=== PATIENT | male | born 1960 | race Asian ===

== ENCOUNTER 2017-02-02 05:33 | Day surgery (SDC) | payer MEDICAID ==
--- NOTE | 2017-02-01 14:10 | GHP ---
[f rep st] PREOP HISTORY AND PHYSICAL DATE OF ADMISSION: 02/02/2017 HISTORY OF PRESENT ILLNESS: The patient is a 56-year-old male with stage 4 chronic kidney disease, l ikely secondary to diabetic nephropathy and hypertension, who is nearing need for hemodialysis. Per reports from Nephrology, he has been hesitant to accept this. He was referred to us for AV fistula c reation; however, this was delayed due to a hospitalization in early January for hypertensive urgenc y. He continues to be followed closely by Nephrology and is now here for arteriovenous fistula surge ry. There is some concern he may not be able to wait for maturation and may end up needing a tempora ry or tunneled neck catheter. The patient is right-handed. Ultrasound shows adequate veins for fist clemencia creation. PAST MEDICAL HISTORY: Includes end-stage renal disease with microalbuminuria, type 2 diabetes since 1989 with reported poor control, hypertension, acanthus nigrans, hypertensive retinopathy, hyperlipid emia, gastroesophageal reflux disease, gout, obstructive sleep apnea with no use of CPAP due to intol erance, history of hyponatremia. PAST SURGICAL HISTORY: Includes eye surgery. FAMILY HISTORY: Negative for kidney disease, but positive for hypertension, hyperlipidemia. SOCIAL HISTORY: Patient is a nonsmoker. He is . 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 ALLERGIES: No known drug allergies. MEDICATIONS: Include Novolin insulin, omega-3 fatty acids, aspirin, allopurinol, atorvastatin, metop rolol, amlodipine. REVIEW OF SYSTEMS: The patient's only positive on a 10-point review of systems is history of diabete s he reports. PHYSICAL EXAMINATION: GENERAL: Reveals a 56-year-old male, alert and oriented x3, and in no acute d istress. HEENT: Normocephalic, atraumatic. Pupils equal and round. CHEST: Clear to auscultation bilaterally. CARDIAC: Regular rate and rhythm. ABDOMEN: Soft, nontender. EXTREMITIES: Warm, dry with palpable radial pulses. IMPRESSION: This is a 56-year-old male with multiple comorbidities and end-stage renal disease, near ing need for hemodialysis. PLAN: Plan is to proceed with a left upper extremity AV fistula. Risks and options have been discus sed including, but not limited to, bleeding, infection, injury to nerve, clotting, failure to mature, need for revision, need for alternate access, steal syndrome, and other problems, and he requests to proceed. /[id number]/MODL
[2017-02-02] MEDS ORDERED: ceFAZolin 2 GM/SWFI 2 GM/20 ML SYR IVP ONE (05:57)
[2017-02-02] MEDS ORDERED: LIDOCAINE 1% 2 ML INJ ID PRN (05:59)
[2017-02-02] MEDS ORDERED: LR 1,000 ML IV ONE (05:59)
[2017-02-02] MEDS ORDERED: NS 1,000 ML IV ONE (06:45)
--- NOTE | 2017-02-02 07:00 | PDANEPAE ---
ANE History of Present Illness 60 year old for AV fistula. ANE Past Medical History - Cardiovascular History Hx Hypertension: Yes Hx Arrhythmias: No Hx Chest Pain: No Hx Coronary Artery / Peripheral Vascular Disease: No Hx CHF / Valvular Disease: No Hx Palpitations: No - Pulmonary History Hx COPD: No Hx Asthma/Reactive Airway Disease: No Hx Recent Upper Respiratory Infection: No Hx Oxygen in Use at Home: No Hx Sleep Apnea: Yes Sleep Apnea Screening Result - Last Documented: Positive Pulmonary History Comment: DEBBIE USES C-PAP INSTRUCTED TO BRING DOS - Neurologic History Hx Cerebrovascular Accident: No Hx Seizures: No Hx Dementia: No - Endocrine History Hx Diabetes: Yes Hypothyroid: No Hyperthyroid: No Obesity: yes, moderate Endocrine History Comment: IDDM SINCE EARLY - Renal History Hx Renal Disorders: Yes Renal History Comment: STAGE 4 CKD MAY NEED DIALYSIS IN THE NEAR FUTURE - Liver History Hx Hepatic Disorders: No - Neurological & Psychiatric Hx Hx Neurological and Psychiatric Disorders: No - Cancer History Hx Cancer: No - Congenital Disorder History Hx Congenital Disorders: No - GI History Hx Gastrointestinal Disorders: Yes Gastrointestinal History Comment: CONSTIPATION - Chronic Pain History Chronic Pain: No - Surgical History Prior Surgeries: DG RETINAL 2015 ANE Review of Systems Review of Systems: - Exercise capacity Exercise capacity: >=4 METS METS (RN): 4 METS ANE Patient History - Allergies Allergies/Adverse Reactions: No Known Allergies Allergy (Unverified 01/27/17 11:12) - Home Medications Home medications: home medication list seen and reviewed Home Medications: Allopurinol HS 01/27/17 [Last Taken 02/01/17 18:00] Amlodipine Besylate DAILY06 01/27/17 [Last Taken 02/02/17 06:00] Aspirin DAILY06 01/27/17 [Last Taken 01/19/17] Atorvastatin Calcium HS 01/27/17 [Last Taken 02/01/17 18:00] Herbal Drugs DAILY 01/27/17 [Last Taken 01/26/17] Labetalol HCl BID 01/27/17 [Last Taken 02/02/17 05:00 200mg] Novolin 70/30 (*) 25 DAILY AT 6PM 01/27/17 [Last Taken 02/01/17 18:00] Novolin 70/30 (*) 30 DAILY06 01/27/17 [Last Taken 02/02/17 05:00 15 units] - NPO status NPO Status: no food or drink >8 hours NPO Since - Liquids (Date): 02/01/17 NPO Since - Liquids (Time): 23:00 NPO Since - Solids (Date): 02/01/17 NPO Since - Solids (Time): 19:30 - Anes Hx Anes Hx: no prior problems - Smoking Hx Smoking Status: Never smoked Marijuana use: Yes - Alcohol Use Alcohol Use: None - Family Anes Hx Family Anes Hx: neg - N/A ANE Labs/Vital Signs - Vital Signs Vital Signs: reviewed preoperatively; see RN documention for details Blood Pressure: 135/68 Heart Rate: 57 Respiratory Rate: 20 O2 Sat (%): 92 Height: 177.8 cm Weight: 107.955 kg ANE Physical Exam - Airway Neck exam: short neck Mallampati Score: Class 4 Mouth exam: normal dental/mouth exam - Pulmonary Pulmonary: no respiratory distress - Cardiovascular Cardiovascular: regular rate and rhythym - ASA Status ASA Status: III ANE Anesthesia Plan Anesthesia Plan: general endotracheal anesthesia Total IV Anesthesia: No
[2017-02-02] MEDS ORDERED: PROTAMINE SULFATE 50 MG/5 ML VIAL IVP ONE ×2 (07:04→07:06)
[2017-02-02] MEDS ORDERED: BUPIVACAINE 0.5% 30 ML SDV ONE (07:04)
[2017-02-02] MEDS ORDERED: PAPAVERINE HCL 60 MG/2 ML SDV ONE (07:04)
[2017-02-02] MEDS ORDERED: THROMBIN (BOVINE) 5,000 UNIT VIAL TP ONE (07:04)
[2017-02-02] MEDS ORDERED: THROMBIN (BOVINE) 20,000 UNIT SPRAY TP ONE (07:04)
[2017-02-02] MEDS ORDERED: fentaNYL 100 MCG/2 ML INJ ONE (07:15)
[2017-02-02] MEDS ORDERED: PROPOFOL 200 MG/20 ML VIAL ONE (07:15)
[2017-02-02] MEDS ORDERED: ONDANSETRON 4 MG/2 ML VIAL ONE (07:30)
[2017-02-02] MEDS ORDERED: DEXAMETHASONE 4 MG/ML VIAL ONE (07:30)
[2017-02-02] MEDS ORDERED: fentaNYL 100 MCG/2 ML INJ IVP PRN (08:06)
[2017-02-02] MEDS ORDERED: NALOXONE HCL 0.4 MG/ML INJ IVP PRN (08:06)
[2017-02-02] MEDS ORDERED: ONDANSETRON 4 MG/2 ML VIAL IVP PRN (08:06)
[2017-02-02] MEDS ORDERED: LR 500 ML IV PRN (08:06)
[2017-02-02] MEDS ORDERED: GLYCOPYRROLATE 0.2 MG/1 ML VIAL ONE (08:41)
[2017-02-02] MEDS ORDERED: SUGAMMADEX SODIUM 200 MG/2 ML VIAL IVP ONE (08:59)
--- NOTE | 2017-02-02 09:17 | POSTOPPROG ---
Post Op Note Date of Operation: 02/02/17 Surgeon: Jovani Zapata Tone Artist Apprentice: Suzy Duffy Anesthesiologist: Anupam Napier Anesthesia: GET(General Endotracheal) Pre-op Diagnosis: CRF Post-op Diagnosis: same Procedure: L radiocephalic AVF Findings: good thrill Inf/Abcess present in the surg proc area at time of surgery?: No EBL: Minimal Complications: none
[2017-02-02 10:03] VITALS: O2SAT 91
[2017-02-02 10:36] VITALS: BP 118/52; RESP 18
[2017-02-02 10:40] VITALS: PULSE 60; TEMP 97.7
--- NOTE | 2017-02-02 19:55 | POSTANESTH ---
Post Anesthetic Evaluation Cardiovascular Status: Normal, Stable, Similar to Pre-Op Cond Respiratory Status: Normal, Stable, Similar to Pre-op Cond. Level of Consciousness/Mental Status: Can Participate in Eval, Alert and Oriented Pain Control: Adequate, Prn Tx Ordered Nausea/Vomiting Control: Adequate, Prn Tx Ordered Complications Possibly Related to Anesthesia: None Noted
--- NOTE | 2017-02-06 14:01 | GOP ---
[f rep st] OPERATIVE REPORT DATE OF OPERATION: 02/02/2017 SURGEON: Jovani Zapata MD SPIKE MACHINE HEATER: HARISH Richardson ANESTHESIOLOGIST: Qamar Freeman MD. PREOPERATIVE DIAGNOSIS: Chronic renal failure. POSTOPERATIVE DIAGNOSIS: Chronic renal failure. PROCEDURE PERFORMED: 1. Left arm ultrasound vein mapping. 2. Radiocephalic arteriovenous fistula. FINDINGS: good flow ESTIMATED BLOOD LOSS: Less than 10 cc. DESCRIPTION OF PROCEDURE: Patient taken to the operating room where he received satisfactory general endotracheal anesthesia by Dr. Freeman, placed in supine position, prepped and draped in usual sterile fashion. Ultrasound was used to map the veins in the left arm. Cephalic vein was quite good both above and below the antecubital space as well as the basilic vein. It was elected to try a radiocephalic AV fistula as the artery looked reasonably good on ultrasound. Incision was made over the radial artery at the wrist. Dissection was carried down. The artery was dissected free and controlled with vessel loops. It was quite soft for a diabetic artery. The cephalic vein was then mobilized underneath the radial flap. It was dissected distally and then ligated and the vein was rotated over to the radial artery where an end-to-side anastomosis was made using a running 6-0 Prolene suture, creating a 7 mm anastomosis. Flow was first established through the AV fistula and then back down the hand, maintaining good capillary filling in the hand and a good thrill in the AV fistula. The suture line appeared to be hemostatic. Heparin was reversed with protamine, as he had been systemically heparinized. The wound was infiltrated with 0.5% Marcaine. Some topical thrombin was placed in the cavity. The wound was closed with interrupted 3-0 Vicryl for the subcutaneous tissue and a 4-0 Monocryl subcuticular stitch for the skin. He tolerated the procedure well, taken to recovery room in good condition. COMPLICATIONS: None. /[id number]/MODL MTDD
== END 2017-02-02 10:40 | disposition home or self-care (01) ==
LOC: FSGY 05:33
PROVIDERS: ATTEND Surgery
PROC: B54NZZA Ultrasonography of Left Upper Extremity Veins, Guidance (ICD-10-PCS; principal; 2017-02-02 07:15)
PROC: 03180ZD Bypass Left Brachial Artery to Upper Arm Vein, Open Approach (ICD-10-PCS; principal; 2017-02-02 07:15)
DX: N18.4 Chronic kidney disease, stage 4 (severe) (principal); E11.22 Type 2 diabetes mellitus with diabetic chronic kidney disease; I12.9 Hypertensive chronic kidney disease with stage 1 through stage 4 chronic kidney disease, or unspecified chronic kidney disease; E11.21 Type 2 diabetes mellitus with diabetic nephropathy; E78.5 Hyperlipidemia, unspecified; K21.9 Gastro-esophageal reflux disease without esophagitis; G47.33 Obstructive sleep apnea (adult) (pediatric)
CPT/HCPCS: J1100; J1644; J2405; J2440; J2704; J2720; J3010

== ENCOUNTER 2017-04-19 06:35 | Day surgery (SDC) | payer MEDICAID ==
[2017-04-19] MEDS ORDERED: ceFAZolin 2 GM/SWFI 2 GM/20 ML SYR IVP ONE (06:57)
[2017-04-19] MEDS ORDERED: LIDOCAINE 1% 2 ML INJ ID PRN (06:58)
[2017-04-19] MEDS ORDERED: LR 1,000 ML IV ONE (06:58)
[2017-04-19] MEDS ORDERED: NS 500 ML IV SCH (07:15)
[2017-04-19 07:36] LABS: PLATELET COUNT 174 10^3/uL (150-400)
[2017-04-19] MEDS ORDERED: BUPIVACAINE 0.5% 30 ML SDV ONE (07:44)
[2017-04-19] MEDS ORDERED: POVIDONE-IODINE 30 GM OINTTUBE TP ONE (07:44)
[2017-04-19 07:48] VITALS: PULSE 63
--- NOTE | 2017-04-19 07:48 | PDHPUP ---
History & Physical Update H&P update statement: This history and physical update is based on an assessment of the patient which was completed after admission or registration (within 24 hours), but prior to the surgery/procedure. H&P update: H&P reviewed & patient examined, no change in patient's condition since H&P completed
[2017-04-19] MEDS ORDERED: fentaNYL 100 MCG/2 ML INJ ONE (07:56)
[2017-04-19] MEDS ORDERED: PROPOFOL 200 MG/20 ML VIAL ONE (07:56)
[2017-04-19] MEDS ORDERED: ROCURONIUM 100 MG/10 ML VIAL ONE (07:58)
--- NOTE | 2017-04-19 08:00 | PDANEPAE ---
ANE History of Present Illness Patient presents for peritoneal dialysis catheter placement ANE Past Medical History - Cardiovascular History Hx Hypertension: Yes Hx Arrhythmias: No Hx Chest Pain: No Hx Coronary Artery / Peripheral Vascular Disease: No Hx CHF / Valvular Disease: No Hx Palpitations: No - Pulmonary History Hx COPD: No Hx Asthma/Reactive Airway Disease: No Hx Recent Upper Respiratory Infection: No Hx Oxygen in Use at Home: No Hx Sleep Apnea: Yes Sleep Apnea Screening Result - Last Documented: Positive Pulmonary History Comment: DEBBIE USES C-PAP INSTRUCTED TO BRING DOS - Neurologic History Hx Cerebrovascular Accident: No Hx Seizures: No Hx Dementia: No - Endocrine History Hx Diabetes: Yes Endocrine History Comment: IDDM SINCE EARLY - Renal History Hx Renal Disorders: Yes Renal History Comment: STAGE 4 CKD. dialysis 3 days a week - Liver History Hx Hepatic Disorders: No - Neurological & Psychiatric Hx Hx Neurological and Psychiatric Disorders: No - Cancer History Hx Cancer: No - Congenital Disorder History Hx Congenital Disorders: No - GI History Hx Gastrointestinal Disorders: No Gastrointestinal History Comment: CONSTIPATION - Other Health History Other Health History: blind in R eye - Chronic Pain History Chronic Pain: No - Surgical History Prior Surgeries: DG detached retinas, blind R eye. eye surgery 04/14 ANE Review of Systems Review of Systems: - Exercise capacity METS (RN): 4 METS ANE Patient History - Allergies Allergies/Adverse Reactions: No Known Allergies Allergy (Unverified 01/27/17 11:12) - Home Medications Home medications: home medication list seen and reviewed Home Medications: Allopurinol HS 01/27/17 [Last Taken 1 Day Ago ~04/18/17] Amlodipine Besylate DAILY06 01/27/17 [Last Taken 1 Day Ago ~04/18/17] Aspirin DAILY06 01/27/17 [Last Taken 2 Weeks Ago ~04/05/17] Atorvastatin Calcium HS 01/27/17 [Last Taken 1 Day Ago ~04/18/17] Herbal Drugs DAILY 01/27/17 [Last Taken 04/19/17] Labetalol HCl BID 01/27/17 [Last Taken 04/19/17] Novolin 70/30 (*) 25 DAILY AT 6PM 01/27/17 [Last Taken 04/19/17] Novolin 70/30 (*) 30 DAILY06 01/27/17 [Last Taken 02/02/17 05:00 15 units] - NPO status NPO Status: no food or drink >8 hours NPO Since - Liquids (Date): 04/18/17 NPO Since - Liquids (Time): 23:00 NPO Since - Solids (Date): 04/18/17 NPO Since - Solids (Time): 20:00 - Anes Hx Anes Hx: no prior problems - Smoking Hx Smoking Status: Never smoked - Family Anes Hx Family Hx Anesthesia Complications: none ANE Labs/Vital Signs - Labs Result Diagrams: 04/19/17 07:25 04/19/17 07:25 - Vital Signs Blood Pressure: 146/71 Heart Rate: 63 Respiratory Rate: 18 O2 Sat (%): 93 Height: 177.8 cm Weight: 99.79 kg ANE Physical Exam - Airway Neck exam: FROM Mallampati Score: Class 3 Mouth exam: poor dentition - Pulmonary Pulmonary: no respiratory distress - Cardiovascular Cardiovascular: regular rate and rhythym - ASA Status ASA Status: III ANE Anesthesia Plan Anesthesia Plan: general endotracheal anesthesia (rba discussed)
[2017-04-19] MEDS ORDERED: SUCCINYLCHOLINE CHLORIDE 200 MG/10 ML SYR IVP ONE (08:14)
[2017-04-19] MEDS ORDERED: CISATRACURIUM BESYLATE 20 MG/10 ML VIAL IV ONE (08:23)
[2017-04-19] MEDS ORDERED: PHENYLEPHRINE HCL 100 MCG/ML SYR ONE (08:47)
[2017-04-19] MEDS ORDERED: ONDANSETRON 4 MG/2 ML VIAL ONE (08:51)
[2017-04-19] MEDS ORDERED: METOCLOPRAMIDE 10 MG/2 ML VIAL ONE (08:51)
[2017-04-19] MEDS ORDERED: SUGAMMADEX SODIUM 200 MG/2 ML VIAL IVP ONE ×2 (08:52→09:00)
[2017-04-19] MEDS ORDERED: GLYCOPYRROLATE 0.2 MG/1 ML VIAL ONE ×3 (09:04)
[2017-04-19] MEDS ORDERED: NEOSTIGMINE METHYLSULFATE 3 MG/3 ML SYR ONE ×2 (09:06)
[2017-04-19] MEDS ORDERED: LABETALOL HCL 5 MG/ML 20 ML MDV ONE (09:26)
--- NOTE | 2017-04-19 09:40 | POSTOPPROG ---
Post Op Note Date of Operation: 04/19/17 Surgeon: Jovani Zapata Pipe Coverer Helper: Suzy Duffy Anesthesiologist: Tejas Gomes Anesthesia: GET(General Endotracheal) Pre-op Diagnosis: CRF, need for PD access Post-op Diagnosis: same Procedure: laparoscopic guided peritoneal dialysis catheter placement Findings: good placement in pelvis, good in and outflow, some adhesions Inf/Abcess present in the surg proc area at time of surgery?: No EBL: Minimal Complications: none
[2017-04-19] MEDS ORDERED: OXYCODONE/APAP 5/325 TAB PO PRN (09:48)
[2017-04-19] MEDS ORDERED: NALOXONE HCL 0.4 MG/ML INJ IVP PRN (09:48)
[2017-04-19] MEDS ORDERED: HYDROCODONE/APAP 5/325 TAB PO PRN (09:48)
[2017-04-19] MEDS ORDERED: LABETALOL HCL 5 MG/ML 20 ML MDV IVP PRN (09:48)
[2017-04-19] MEDS ORDERED: NS 500 ML IV PRN (09:48)
[2017-04-19] MEDS ORDERED: fentaNYL 100 MCG/2 ML INJ IVP PRN (09:48)
[2017-04-19] MEDS ORDERED: ONDANSETRON 4 MG/2 ML VIAL IVP PRN (09:48)
--- NOTE | 2017-04-19 09:49 | POSTANESTH ---
Post Anesthetic Evaluation Cardiovascular Status: Similar to Pre-Op Cond Respiratory Status: Similar to Pre-op Cond. Level of Consciousness/Mental Status: Alert and Oriented Pain Control: Adequate, Prn Tx Ordered Nausea/Vomiting Control: Adequate, Prn Tx Ordered Complications Possibly Related to Anesthesia: None Noted
[2017-04-19 10:25] VITALS: TEMP 97.5
[2017-04-19] MEDS ORDERED: ACETAMINOPHEN 500 MG TAB PO ONE (11:10)
[2017-04-19 11:34] VITALS: BP 150/72
[2017-04-19 11:53] VITALS: O2SAT 95
[2017-04-19 11:55] VITALS: RESP 14
--- NOTE | 2017-04-19 12:17 | GOP ---
[f rep st] OPERATIVE REPORT DATE OF OPERATION: 04/19/2017 SURGEON: Jovani Zapata MD PREOPERATIVE DIAGNOSIS: Chronic renal failure. POSTOPERATIVE DIAGNOSIS: Chronic renal failure. PROCEDURE PERFORMED: Laparoscopic peritoneal dialysis catheter placement. FINDINGS: Patient was found to have excellent flow from his PD catheter. DESCRIPTION OF PROCEDURE: The patient was brought to the operating room where he received satisfacto ry general endotracheal anesthesia by . He was placed in supine position, prepped and draped in usual sterile fashion. A periumbilical incision was made and dissection was carried down to the rectus sheath. A Veress nee dle was inserted. Pneumoperitoneum was established. A 10 mm trocar was introduced. Laparoscope int roduced. Good visualization was obtained. A second trocar was placed in the left lower quadrant. T he swan neck catheter was then introduced via the introducer sheath and then positioned into the deep pelvis. A 10 mm trocar was introduced in the catheter was secured in position by closing the fascia over the Dacron cuff with interrupted 0-Vicryl sutures. Wound was infiltrated with 0.5% Marcaine. The catheter and other Dacron pledget was pulled inferiorly and then exited out through the trocar si te. The pelvis was instilled with 500 cc of saline, and then, a reverse flow removed at least 400 cc of that saline back out before stopping the procedure. The catheter was dressed at the exit site wi th Betadine ointment. It was attached to its permanent fixtures. He tolerated the procedure well. There were no complications. Blood loss was negligible, taken recovery room in good condition ____. /[id number]/MODL
== END 2017-04-19 12:07 | disposition home or self-care (01) ==
LOC: FSGY 06:35
PROVIDERS: ATTEND Surgery
PROC: 0WHG33Z Insertion of Infusion Device into Peritoneal Cavity, Percutaneous Approach (ICD-10-PCS; principal; 2017-04-19 08:00)
PROC: 0JH83XZ Insertion of Tunneled Vascular Access Device into Abdomen Subcutaneous Tissue and Fascia, Percutaneous Approach (ICD-10-PCS; principal; 2017-04-19 08:00)
DX: N18.9 Chronic kidney disease, unspecified (principal); Z99.2 Dependence on renal dialysis
CPT/HCPCS: C1750; J0330; J0690; J2370; J2405; J2704; J2710; J2765; J3010; J3490

== ENCOUNTER 2017-05-26 09:17 | Day surgery (SDC) | payer MEDICAID ==
[2017-05-26] MEDS ORDERED: ceFAZolin 2 GM/SWFI 2 GM/20 ML SYR IVP ONE (09:41)
[2017-05-26] MEDS ORDERED: NS 1,000 ML IV ONE (09:42)
[2017-05-26] MEDS ORDERED: LIDOCAINE 1% 2 ML INJ ID PRN (09:42)
[2017-05-26] MEDS ORDERED: BUPIVACAINE 0.25% 30 ML SDV ONE (10:56)
[2017-05-26] MEDS ORDERED: POVIDONE-IODINE 30 GM OINTTUBE TP ONE (10:56)
[2017-05-26] MEDS ORDERED: MIDAZOLAM 2 MG/2 ML VIAL IVP ONE (14:49)
--- NOTE | 2017-05-26 14:51 | PDANEPAE ---
ANE Past Medical History - Cardiovascular History Hx Hypertension: Yes Hx Arrhythmias: No Hx Chest Pain: No Hx Coronary Artery / Peripheral Vascular Disease: No Hx CHF / Valvular Disease: No Hx Palpitations: No - Pulmonary History Hx COPD: No Hx Asthma/Reactive Airway Disease: No Hx Recent Upper Respiratory Infection: No Hx Oxygen in Use at Home: No Hx Sleep Apnea: Yes Sleep Apnea Screening Result - Last Documented: Positive Pulmonary History Comment: DEBBIE USES C-PAP INSTRUCTED TO BRING DOS - Neurologic History Hx Cerebrovascular Accident: No Hx Seizures: No Hx Dementia: No - Endocrine History Hx Diabetes: Yes Endocrine History Comment: IDDM SINCE EARLY - Renal History Hx Renal Disorders: Yes Renal History Comment: STAGE 4 CKD. dialysis 3 days a week - Liver History Hx Hepatic Disorders: No - Neurological & Psychiatric Hx Hx Neurological and Psychiatric Disorders: No - Cancer History Hx Cancer: No - Congenital Disorder History Hx Congenital Disorders: No - GI History Hx Gastrointestinal Disorders: No Gastrointestinal History Comment: CONSTIPATION - Other Health History Other Health History: dialysis cath has migrated upward in abd;. blind in R eye. gout - Chronic Pain History Chronic Pain: No - Surgical History Prior Surgeries: Lap peritoneal dialysis cath insertion 04-19-17. L UE AV fistula 02-02-17. DG detached retinas, blind R eye. eye surgery 04/14 ANE Review of Systems Review of Systems: - Exercise capacity METS (RN): 4 METS ANE Patient History - Allergies Allergies/Adverse Reactions: No Known Allergies Allergy (Verified 05/25/17 12:42) - Home Medications Home Medications: Allopurinol HS 01/27/17 [Last Taken 05/25/17] Aspirin DAILY06 01/27/17 [Last Taken 05/24/17 08:00] Atorvastatin Calcium HS 01/27/17 [Last Taken 05/25/17] Herbal Drugs DAILY 01/27/17 [Last Taken 04/19/17] Labetalol HCl BID 01/27/17 [Last Taken 05/26/17] Novolin 70/30 (*) 20 DAILY06 01/27/17 [Last Taken 05/26/17] Novolin 70/30 (*) 25 DAILY AT 6PM 01/27/17 [Last Taken 04/19/17] Lasix 05/25/17 [Last Taken 05/25/17] Senokot 05/25/17 [Last Taken 05/26/17] Stool Softener 05/25/17 [Last Taken 05/26/17] - NPO status NPO Since - Liquids (Date): 05/26/17 NPO Since - Liquids (Time): 23:30 NPO Since - Solids (Date): 05/25/17 NPO Since - Solids (Time): 22:00 - Anes Hx Anes Hx: no prior problems - Smoking Hx Smoking Status: Never smoked - Family Anes Hx Family Hx Anesthesia Complications: none ANE Labs/Vital Signs - Labs Result Diagrams: 05/26/17 10:15 - Vital Signs Blood Pressure: 139/74 Heart Rate: 63 Respiratory Rate: 18 O2 Sat (%): 96 Height: 177.8 cm Weight: 99.79 kg ANE Physical Exam - Airway Neck exam: decreased ROM Mallampati Score: Class 3 Mouth exam: normal dental/mouth exam - Pulmonary Pulmonary: no respiratory distress, no rales or rhonchi, clear to auscultation - Cardiovascular Cardiovascular: regular rate and rhythym, no murmur, rub, or gallop - ASA Status ASA Status: III ANE Anesthesia Plan Anesthesia Plan: general endotracheal anesthesia
[2017-05-26] MEDS ORDERED: PROPOFOL 200 MG/20 ML VIAL ONE ×2 (14:54→15:24)
[2017-05-26] MEDS ORDERED: fentaNYL 100 MCG/2 ML INJ ONE (14:54)
[2017-05-26] MEDS ORDERED: DEXAMETHASONE 4 MG/ML VIAL ONE (14:57)
[2017-05-26] MEDS ORDERED: ONDANSETRON 4 MG/2 ML VIAL ONE (14:57)
[2017-05-26] MEDS ORDERED: SUCCINYLCHOLINE CHLORIDE 200 MG/10 ML SYR IVP ONE (14:57)
[2017-05-26] MEDS ORDERED: LIDOCAINE 2% 5 ML SDV ONE ×2 (14:57→15:52)
[2017-05-26] MEDS ORDERED: BUPIVACAINE 0.5% 10 ML SDV ONE (15:32)
[2017-05-26] MEDS ORDERED: CISATRACURIUM BESYLATE 20 MG/10 ML VIAL IV ONE (16:01)
[2017-05-26] MEDS ORDERED: fentaNYL 100 MCG/2 ML INJ IVP PRN (16:05)
[2017-05-26] MEDS ORDERED: OXYCODONE/APAP 5/325 TAB PO PRN (16:05)
[2017-05-26] MEDS ORDERED: NS 500 ML IV PRN (16:05)
[2017-05-26] MEDS ORDERED: ACETAMINOPHEN 500 MG TAB PO PRN (16:05)
[2017-05-26] MEDS ORDERED: PROMETHAZINE HCL 25 MG/ML INJ IVP PRN (16:05)
[2017-05-26] MEDS ORDERED: DEXAMETHASONE 4 MG/ML VIAL IVP PRN (16:05)
[2017-05-26] MEDS ORDERED: NALOXONE HCL 0.4 MG/ML INJ IVP PRN (16:05)
[2017-05-26] MEDS ORDERED: NEOSTIGMINE METHYLSULFATE 3 MG/3 ML SYR ONE (16:54)
[2017-05-26] MEDS ORDERED: GLYCOPYRROLATE 0.2 MG/1 ML VIAL ONE ×2 (16:54)
--- NOTE | 2017-05-26 17:16 | POSTANESTH ---
Post Anesthetic Evaluation Cardiovascular Status: Normal, Stable, Similar to Pre-Op Cond Respiratory Status: Normal, Stable, Similar to Pre-op Cond. Level of Consciousness/Mental Status: Can Participate in Eval, Moderately Sleepy Pain Control: Adequate, Prn Tx Ordered Nausea/Vomiting Control: Adequate, Prn Tx Ordered Complications Possibly Related to Anesthesia: None Noted
--- NOTE | 2017-05-26 17:21 | POSTOPPROG ---
Post Op Note Date of Operation: 05/26/17 Surgeon: Jovani Zapata Rheumatologist: Lorena Anesthesiologist: Carmen Anesthesia: Epidural Pre-op Diagnosis: Chronic renal failure Post-op Diagnosis: same Indication: Dialysis Procedure: PD catheter placement Inf/Abcess present in the surg proc area at time of surgery?: No Depth: Organ Space EBL: Minimal
[2017-05-26 17:38] VITALS: TEMP 97.9
[2017-05-26 17:45] VITALS: BP 128/61; PULSE 66; RESP 17; O2SAT 91
--- NOTE | 2017-05-29 20:44 | GOP ---
[f rep st] OPERATIVE REPORT DATE OF OPERATION: 05/26/2017 SURGEON: Jovani Zapata MD PREOPERATIVE DIAGNOSIS: Chronic renal failure with malpositioned peritoneal dialysis catheter. POSTOPERATIVE DIAGNOSIS: same PROCEDURE PERFORMED: Laparoscopic peritoneal dialysis catheter reposition with suture anchor. FINDINGS: The catheter had migrated up into the right upper quadrant and trapped in several loops of small bowel and omentum. The catheter functioned well after repositioning in the pelvis. DESCRIPTION OF PROCEDURE: The patient was taken to the operating room, where he received satisfactory general endotracheal anesthesia. He was placed in supine position, prepped and draped in the usual sterile fashion. A short incision was made. A Veress needle was inserted and pneumoperitoneum established. A laparoscope was introduced. Good visualization was obtained, although there was a fair amount of adhesions from previous surgery. Two other trocars were placed in the abdomen under direct vision, and the catheter was identified and it was pulled down from its migratory position and placed deep in the pelvis, where it was then sutured in place with 2 separate 3-0 Vicryl sutures, securing it down to the peritoneum of the low pelvis. Trocars were removed under direct vision. Pneumoperitoneum was released. Trocar sites were closed with 0 Vicryl for the fascia and a 4-0 Monocryl subcuticular stitch for the skin. All layers were infiltrated with Marcaine. The previous PD catheter was then irrigated with 450 cc of saline, and it returned 300 cc easily. Wounds were dressed. He tolerated the procedure well, and was taken to the recovery room in good condition. There were no complications. /[id number]/MODL MTDD
== END 2017-05-26 18:15 | disposition home or self-care (01) ==
LOC: FSGY 09:17
PROVIDERS: ATTEND Surgery
PROC: 0WWG43Z Revision of Infusion Device in Peritoneal Cavity, Percutaneous Endoscopic Approach (ICD-10-PCS; principal; 2017-05-26 10:30)
DX: T82.42XA Displacement of vascular dialysis catheter, initial encounter (principal); E11.22 Type 2 diabetes mellitus with diabetic chronic kidney disease; N18.6 End stage renal disease; I12.0 Hypertensive chronic kidney disease with stage 5 chronic kidney disease or end stage renal disease; G47.33 Obstructive sleep apnea (adult) (pediatric); H54.7 Unspecified visual loss; H33.23 Serous retinal detachment, bilateral
CPT/HCPCS: C1750; J0330; J1100; J2250; J2405; J2704; J2710; J3010